=== PATIENT | female | born 2000 | race African-American/Black ===

== ENCOUNTER 2024-07-20 21:27 | Emergency (ER) | payer OTHER, SELFPAY ==
--- NOTE | ~2024-07-20 | CT_ITS ---
Noncontrast CT scan of the thoracolumbar spine CLINICAL HISTORY: Trauma TECHNIQUE: Axial noncontrast imaging of the thoracolumbar spine was performed. Sagittal and coronal r eformatted images were constructed. Dose reduction technique was used on this scan by utilizing autom ated exposure control and iterative reconstruction technique. The dose-length product (DLP) was 338.6 5 mGy-cm. FINDINGS: There is no fracture or subluxation of the thoracic spine. Vertebral bodies maintain normal height and alignment. Intervertebral disc spaces are well preserved. No disc bulge or herniation see n in the thoracic spine. No spinal canal stenosis or cord compression identified. Neural foramina are preserved throughout. There is no fracture or subluxation of the lumbar spine. Vertebral bodies maintain normal height and alignment. Intervertebral disc spaces are preserved. No significant disc bulge or herniation seen at any lumbar level. No spinal canal stenosis or neural foraminal narrowing identified. Paravertebral soft tissues are unremarkable. Impression: No significant abnormality seen. Reviewed, dictated and finalized at [facility]. Impression: No significant abnormality seen.
--- NOTE | ~2024-07-20 | XR_ITS ---
Portable chest x-ray Comparison: None Clinical History: Rib pain Findings: Lungs are clear, without focal consolidation or pleural effusion. Cardiomediastinal silho uette is unremarkable. Bones and soft tissues are unremarkable. Impression: Normal chest. Reviewed, dictated and finalized at location [facility]. Impression: Normal chest.
[2024-07-20 22:01] VITALS: BP 102/62; PULSE 72; RESP 17; TEMP 36.8; O2SAT 100
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
--- OUTSIDE RECORDS SUMMARY | 2024-07-21 00:49 | XMS_ITS | Encounter Summary ---
Author Organization [facility] althcare Address [facility] [place] [address] Care Team Providers Care Diamond Wheel Molder Name Role Phone Bj Joseph MD Primary Care Provider [phone] Encounter Details Date Type Department Care Team (Late st Contact Info) Description 07/27/2022 Orders Only [facility] [address] [place] [phone] Lorri Mclain RN Encounter for elective induction of labor (Primary Dx) Social History Tobacco Use Types Packs/Day Years Used Date Smoking Tobacco: Never Smokeless Tobacco: Never Alcohol Use Standard Drinks/Week Comments No 0 (1 standard drink = 0.6 oz pur e alcohol) AUDIT-C Answer Date Recorded Q1: How often do you have a drink containing alcohol? Never 06/17/2022 Q2: How many drinks containi ng alcohol do you have on a typical day when you are drinking? Patient does not drink Q3: How often do you have si x or more drinks on one occasion? Never 06/17/2022 Hunger Vital Sign Answer Date Recorded Within the past 12 months, y ou worried that your food would run out before you got the money to buy more. Never true 05/13/19 23 Within the past 12 months, t he food you bought just didn't last and you didn't have money to get more. Never true 05/13/2022 PRAPARE - Transportation Answer Date Re corded In the past 12 months, has l ack of transportation kept you from medical appointments or from getting medications? No 06/03 In the past 12 months, has l ack of transportation kept you from meetings, work, or from getting things needed for daily living? 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 No / Unsure 07/08/2022 5:51 PM CDT documented as of this encounter Plan of Treatment Not on file documented as of this encounter Visit Diagnoses Diagnosis Encounter for elective induction of labor- Primary documented in this encounter Additional Health Concerns Infection Onset Date Last Indicated Resolved Time R/O COVID-19 08/06/2022 08/06/2022 08/06/2022 5:36 AM CDT MRSA 09/23/2022 09/23/2022 documented as of this encounter Care Teams Diamond Wheel Molder Relationship Specialty Start Date End Date Bj Joseph MD [address] [place] [phone] PCP - General Neonatology 09/23/22 documented as of this encounter
--- OUTSIDE RECORDS SUMMARY | 2024-07-21 00:49 | XMS_ITS | Encounter Summary ---
Author Organization [facility] althcare Address [facility] [place] [address] Care Team Providers Care Cast Associate Name Role Phone Bj Joseph MD Primary Care Provider [phone] Reason for Referral * OBGYN (Routine) - Closed Specialty Diagnoses / Procedures Referred By Dian t Referred To Contact Obstetrics and Gynecology Diagnoses Encounter for elective induction of labor Procedures Labor Induction Sunitha Al CNM Phone: tel: fax: Referral ID Status Reason Start Date Expiration Date Visits Re quested Visits Authorized [id number] Closed 07/10/2021 01/08/2023 1 1 Encounter Details Date Type Department Care Team (Late st Contact Info) Description 07/10/2021 Orders Only [address] [phone] Lorri Mclain RN Encounter for elective induction of labor (Primary Dx) Social History Tobacco Use Types Packs/Day Years Used Date Smoking Tobacco: Never Smokeless Tobacco: Never Alcohol Use Standard Drinks/Week Comments No 0 (1 standard drink = 0.6 oz pur e alcohol) Comments Yes Sex and Gender Information Value Date Recorded Sex Assigned at Not on file 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 Gender Identity Not on file Sexual Orientation Not on file documented as of this encounter Plan of Treatment Scheduled Orders Name Type Priority Associated Diagnoses Orde r Schedule Labor Induction OB Routine Encounter for elective induction of labor Expected: 07/16/2021, Expires: 08/09/2021 documented as of this encounter Visit Diagnoses Diagnosis Encounter for elective induction of labor- Primary documented in this encounter Additional Health Concerns Infection Onset Date Last Indicated Resolved Time R/O COVID-19 Comment:Results negative 07/16/2021 07/16/2021 07/16/2021 12:5 3 PM CDT R/O COVID-19 05/12/2022 05/12/2022 05/12/2022 1:43 PM LOFT WORKER HEAD Rhinovirus infection 05/12/2022 05/12/2022 023 12:21 AM LOFT WORKER HEAD R/O COVID-19 08/06/2022 08/06/2022 08/06/2022 5:36 AM CDT MRSA 09/23/2022 09/23/2022 documented as of this encounter Care Teams Cast Associate Relationship Specialty Start Date End Date Bj Joseph MD [address] [place] [phone] PCP - General Neonatology 09/23/22 documented as of this encounter
[2024-07-21 00:51] VITALS: BP 122/75; PULSE 64; RESP 14; O2SAT 100
[2024-07-21] MEDS: KETOROLAC 15 MG/ML VIAL (*BKC) IM (00:55)
== END 2024-07-21 01:35 | disposition home or self-care (01) ==
PROVIDERS: Emergency Provider Emergency Medicine
DX: R07.81 Pleurodynia (principal); M54.50 Low back pain, unspecified
CPT/HCPCS: 71045; 72128; 72131; 96372; 99284; J1885